=== PATIENT | female | born 1945 | race Caucasian/White ===

== ENCOUNTER 2018-09-29 14:30 | Outpatient (RCR) | payer MEDICARE, OTHER, SELFPAY ==
--- NOTE | 2018-08-16 17:06 | PT.OIE ---
Current Diagnoses Retention of urine, unspecified (08/12/18) Provider Visit Care Team Role Provider Type Gregoria Reid Primary Care Provider Non-Staff Specialty: Medical Address: [place], [address] Email: Popeye Pires Attending Provider Non-Staff Specialty: Urology Address: [address] [place] [address] [place], [address] Email: Physical Therapy Initial Evaluation PT-OP-A Visit Information Start: 08/12/18 12:20 Freq: Status: Active Protocol: Document 08/12/18 12:15 [facility] (Rec: 08/13/18 17:56 [facility] [id number]) Out-Patient Physical Therapy Visit Information Visit Information Visit Type Initial Evaluation Visit Note 72 year old female referered for urinary retention Visit Start Time 12:15 Visit Stop Time 13:00 Total Visit Minutes 45 Visit Number 1 Evaluation Information Evaluation Date 08/12/18 PT-OP-B Current Condition Start: 08/12/18 12:20 Freq: Status: Active Protocol: Document 08/12/18 12:15 [facility] (Rec: 08/12/18 12:40 [facility]ES [facility] [id number]) Current Condition History of Current Condition Onset Date July 2018 Current Complaints incomplete bladder emptying, urgency, frequency History of Current Condition Lilly reports her symptoms include a inability to void sitting up but if she bends over she is able to empty her bladder. Bladder leakage is also a issue and she leaks a few times per week and sometimes at night. She wears mini pads daily and changes them just one time per day. She does have a history of UTI 's but hasn't had one in the past few years. She tends to void frequently througout the day and is not fully emptying her bladder. She usually wakes up 1 time per night to void. She underwent a small intestine surgery laproscopy in March 2018. She takes one dose Mirilax per day and this regulates her bowels. [place] walks in the mall for exercise almost every day. Treatment Goals Patient/Caregiver Goals To be able to fully empty her bladder and decrease urinary urgency, frequency, and leakage Current Functional Impairments (Reported) Functional Limitations- ADL's frequent use of the restroom during the day due to urgency and waking at night to void makes her tired during the day for ADL's PT-OP-F Manual Assessment Start: 08/12/18 12:20 Freq: Status: Active Protocol: Document 08/12/18 12:15 [facility] (Rec: 08/16/18 16:56 [facility] [email or web address]) Manual Assessments Soft Tissue Assessment Soft Tissue Mobility Assessment tightness in bilateral hip musculature in piriformis, hamstrings, posterior gluteals PT-OP-I Pelvic Floor Start: 08/12/18 12:20 Freq: Status: Active Protocol: Document 08/12/18 12:15 [facility] (Rec: 08/16/18 16:56 [facility] [email or web address]) Pelvic Floor Assessment Urine Pelvic Floor Surgery No Urinary Symptoms Urge Sensation Incomplete Emptying Leakage Size Medium Leakage Cause Urge Leaks Per Day 2 Voiding Frequency approximately every hour Nocturia wakes one time at night to void Pads Used In 24 Hours 2 Urine Pad Type Maxi Pad Pelvic Clock Pelvic Clock 12-3 Atrophy Pelvic Clock 3-6 Atrophy Guarding Pelvic Clock 6-9 Atrophy Guarding Pelvic Clock 9-12 Atrophy Contraction Ability Voluntary Contraction Weak Voluntary Relaxation Weak Manual Muscle Testing Left 3 Manual Muscle Testing Right 3 Manual Muscle Testing Anterior 3 Manual Muscle Testing Posterior 3 Comments Pelvic Floor Comments difficulty fully relaxing the pelvic floor following a contraction PT-OP-Q Treatments Start: 08/12/18 12:20 Freq: Status: Active Protocol: Document 08/12/18 12:15 [facility] (Rec: 08/16/18 16:56 [facility] [email or web address]) Therapeutic Exercises Supine Exercises 2 Supine Exercise Name piriformis stretch Side bilateral Reps/Minutes hold 30 seconds to 1 minute 1 Supine Exercise Name happy baby stretch Side bilateral Reps/Minutes hold 30 seconds to 1 min Other Exercises 1 Other Exercise Name seated scapula squeezes for posture Side bilateral Reps/Minutes 10 reps a few times per day for posture PT-OP-T Assessment and Plan Start: 08/12/18 12:20 Freq: Status: Active Protocol: Document 08/12/18 12:15 [facility] (Rec: 08/16/18 16:56 [facility] [email or web address]) Physical Therapy Assessment Rehab Potential Rehabilitation Potential Good Evaluation Complexity Number of Personal Factors/Comorbidities 0 Number of Body Systems Impaired 1-2 Clinical Presentation at Evaluation Stable Impairments Impairments Activity Tolerance Posture Strength Tone Other Impairments urinary retention, urinary incontinence and frequency to void Goals Four Impairment Difficulty fully relaxing the pelvic floor following a contraction Short Term Goal (STG) Lilly is educated on fully relaxing the pelvic floor using EMG biofeedback down training for improved voiding and decreased urgancy Three Impairment Poor postural habits creating tightness in the abdominal wall and bladder Nursing Home Goal (LTG) Lilly is educated on postural habits to decrease forward fold in sitting and decrease tightness of the abdominal fascia over the bladder. Two Impairment endurance of the pelvic floor to support the bladder Pot Press Operator Goal (LTG) Improve strength of the pelvic floor from 2-3 second hold time to 10 second hold time in supine One Impairment Incomplete bladder emptying Short Term Goal (STG) Lilly is educated on relaxed awareness of the pelvic floor to help improve bladder emptying STG Duration 4 weeks Pot Press Operator Goal (LTG) With pelvic floor relaxation exercises Lilly is able to fully empty her bladder and her voiding frequency is decreased to every 2-3 hours Assessment Summary Assessment Lilly is a 73 year old female referred to PT for pelvic relaxation and EMG biofeedback for her symptoms of urinary retention. Lilly reports her symptoms of urinary retention began in June. She reports having to fold forward resting her upper body on her thighs to fully void. She does reports that she also under went surgery for small bowel obstruction earlier in the year. She notes she is often in a hurry when she voids due to urinary frequency and urgency that she experiences. She is experiencing bladder leakage approximately 2 times per week and is wearing pads for this. She will also report that she will wake up wet at night. She denies any feeling of pelvic pressure of heavyness. With examination today Lilly sits in a slumped forward posture bending forward from her waist in sitting. With internal examination she is able to facilitate all of her pelvic floor musculature at 3/ 5 MMT but she is weak and she has difficulty relaxing her pelvic floor following a contraction. She is limited in her pelvic floor endurance to only a few second hold time . She is also restricted in the fascia of the abdominal wall and over the suprapubic region which may be affecting her bladder's ability to fully empty and fill. Today we began with education on fully relaxing the pelvic floor with voiding and stretches to help with relaxation of the pelvic floor when voiding. I also started Lilly on some postural exercises as her poor posture may be contributing to her bladder dysfunction. EMG Biofeedback will begin next visit for pelvic relaxation and endurance training. Lilly's was present for her treatment. She is a good candidate for PT Physical Therapy Plan Frequency and Duration Duration of Treatment 8 Plan of Care Start Date 08/12/18 Plan of Care End Date 10/07/18 Therapeutic Interventions Therapeutic Interventions Home Exercise Program Manual Therapy Neuromuscular Re-education Patient/Caregiver Education Self-Care/Home Management Soft Tissue Mobilization Therapeutic Exercises Modalities Biofeedback Next Visit Focus/Plan Next Note Type Treatment Note Next Visit Plan review exercises that were given at the initial evaluation and begin EMG biofeedback
--- NOTE | 2018-08-20 13:50 | PT.OTN ---
Current Diagnoses Retention of urine, unspecified (08/18/18) Physical Therapy Treatment Note PT-OP-A Visit Information Start: 08/12/18 12:20 Freq: Status: Active Protocol: Document 08/18/18 14:30 [facility] (Rec: 08/20/18 12:58 [facility] [email or web address]) Out-Patient Physical Therapy Visit Information Visit Information Visit Type Treatment Note Visit Start Time 14:30 Visit Stop Time 15:15 Total Visit Minutes 45 Visit Number 2 Evaluation Information Evaluation Date 08/12/18 PT-OP-B Current Condition Start: 08/12/18 12:20 Freq: Status: Active Protocol: Document 08/12/18 12:15 [facility] (Rec: 08/12/18 12:40 [facility] [id number]) Current Condition History of Current Condition Onset Date July 2018 Current Complaints incomplete bladder emptying, urgency, frequency History of Current Condition Lilly reports her symptoms include a inablility to void sitting up but if she bends over she is able to empty her bladder. Bladder leakage is also a issue and she leaks a few times per week and sometimes at night. She wears mini pads daily and changes them just one time per day. She does have a history of UTI 's but hasn't had one in the past few years. She tends to void frequently througout the day and is not fully emptying her bladder. She usually wakes up 1 time per night to void. She underwent a small intestine surgery laproscopy in March 2018. She takes one dose Mirilax per day and this regulates her bowels. She walks in the mall for exercise almost every day. Treatment Goals Patient/Caregiver Goals To be able to fully empty her bladder and decrease urinary urgency, frequency, and leakage Current Functional Impairments (Reported) Functional Limitations- ADL's frequent use of the restroom during the day due to urgency and waking at night to void makes her tired during the day for ADL's PT-OP-C Subjective Start: 08/12/18 12:20 Freq: Status: Active Protocol: Document 08/18/18 14:30 [facility] (Rec: 08/20/18 12:58 [facility] [email or web address]) OP-PT Subjective Patient Comments Patient Comments Lilly reports she does not a bed to lay down on for exercises at this time and it is difficult for her to get off the floor. She is wondering about sitting exercises. She reports she sleeps on the couch on her side PT-OP-F Manual Assessment Start: 08/12/18 12:20 Freq: Status: Active Protocol: Document 08/12/18 12:15 [facility] (Rec: 08/16/18 16:56 [facility] [email or web address]) Manual Assessments Soft Tissue Assessment Soft Tissue Mobility Assessment tightness in bilateral hip musculature in piriformis, hamstrings, posterior gluteals PT-OP-I Pelvic Floor Start: 08/12/18 12:20 Freq: Status: Active Protocol: Document 08/12/18 12:15 [facility] (Rec: 08/16/18 16:56 [facility] [email or web address]) Pelvic Floor Assessment Urine Pelvic Floor Surgery No Urinary Symptoms Urge Sensation Incomplete Emptying Leakage Size Medium Leakage Cause Urge Leaks Per Day 2 Voiding Frequency approximately every hour Nocturia wakes one time at night to void Pads Used In 24 Hours 2 Urine Pad Type Maxi Pad Pelvic Clock Pelvic Clock 12-3 Atrophy Pelvic Clock 3-6 Atrophy Guarding Pelvic Clock 6-9 Atrophy Guarding Pelvic Clock 9-12 Atrophy Contraction Ability Voluntary Contraction Weak Voluntary Relaxation Weak Manual Muscle Testing Left 3 Manual Muscle Testing Right 3 Manual Muscle Testing Anterior 3 Manual Muscle Testing Posterior 3 Comments Pelvic Floor Comments difficulty fully relaxing the pelvic floor following a contraction PT-OP-Q Treatments Start: 08/12/18 12:20 Freq: Status: Active Protocol: Document 08/18/18 14:30 [facility] (Rec: 08/20/18 12:58 [facility] [email or web address]) Therapeutic Exercises Supine Exercises 2 Supine Exercise Name piriformis stretch Side bilateral Reps/Minutes hold 30 seconds to 1 minute Comments modified this for sitting at home 1 Supine Exercise Name happy baby stretch Side bilateral Reps/Minutes hold 30 seconds to 1 min Other Exercises 3 Other Exercise Name modified down dog stretch Comments used a chair for support, cues to open up the sitz bones 2 Other Exercise Name standing wall slides and wall posture Reps/Minutes 10 reps 1 Other Exercise Name seated scapula squeezes for posture Side bilateral Reps/Minutes 10 reps a few times per day for posture Neuro Re-Education Treatment Other Activities 1 Details EMG biofeedback assisted pelvic floor training and facilitation Reps/Duration 10 minutes of neuro re-ed Comments began long holds of 10 reps with empahsis on full relaxation of the pelvic floor in between contractions. Average 15.6 uv max of 42.5 uv and resting tone of 6.3 Time was spent on relaxed awareness of the pelvic floor PT-OP-T Assessment and Plan Start: 08/12/18 12:20 Freq: Status: Active Protocol: Document 08/18/18 14:30 [facility] (Rec: 08/20/18 13:50 [facility] [email or web address]) Physical Therapy Assessment Assessment Summary Assessment Lilly needed some change of position for her stretches as it is difficult for her to lay flat at home as she sleeps on the couch and does not currently have a bed to lay on It is difficult for her to lay on the floor. I did work on her pelvic floor exercises in supine but she will try these on the couch at home. She reports the toileting strategy of raising her arms over head to stretch the urethra has really helped her to void. Physical Therapy Plan Frequency and Duration Frequency of Treatment 1x/Week Duration of Treatment 8 Plan of Care Start Date 08/12/18 Plan of Care End Date 10/07/18 Therapeutic Interventions Therapeutic Interventions Home Exercise Program Manual Therapy Neuromuscular Re-education Patient/Caregiver Education Self-Care/Home Management Soft Tissue Mobilization Therapeutic Exercises Modalities Biofeedback Next Visit Focus/Plan Next Note Type Treatment Note Next Visit Plan review postural stretches next visit and continue to progress pelvic floor relaxed awareness and strengthening
--- NOTE | 2018-08-25 17:11 | PT.OTN ---
Current Diagnoses Retention of urine, unspecified (08/25/18) Physical Therapy Treatment Note PT-OP-A Visit Information Start: 08/12/18 12:20 Freq: Status: Active Protocol: Document 08/25/18 16:57 [facility] (Rec: 08/25/18 17:10 [facility] [email or web address]) Out-Patient Physical Therapy Visit Information Visit Information Visit Type Treatment Note Visit Start Time 14:30 Visit Stop Time 15:15 Total Visit Minutes 45 Visit Number 3 Evaluation Information Evaluation Date 08/12/18 PT-OP-B Current Condition Start: 08/12/18 12:20 Freq: Status: Active Protocol: Document 08/12/18 12:15 [facility] (Rec: 08/12/18 12:40 [facility] [id number]) Current Condition History of Current Condition Onset Date July 2018 Current Complaints incomplete bladder emptying, urgency, frequency History of Current Condition Lilly reports her symptoms include a inablility to void sitting up but if she bends over she is able to empty her bladder. Bladder leakage is also a issue and she leaks a few times per week and sometimes at night. She wears mini pads daily and changes them just one time per day. She does have a history of UTI 's but hasn't had one in the past few years. She tends to void frequently througout the day and is not fully emptying her bladder. She usually wakes up 1 time per night to void. She underwent a small intestine surgery laproscopy in March 2018. She takes one dose Mirilax per day and this regulates her bowels. She walks in the mall for exercise almost every day. Treatment Goals Patient/Caregiver Goals To be able to fully empty her bladder and decrease urinary urgency, frequency, and leakage Current Functional Impairments (Reported) Functional Limitations- ADL's frequent use of the restroom during the day due to urgency and waking at night to void makes her tired during the day for ADL's PT-OP-C Subjective Start: 08/12/18 12:20 Freq: Status: Active Protocol: Document 08/25/18 16:57 [facility] (Rec: 08/25/18 17:10 [facility] [email or web address]) OP-PT Subjective Patient Comments Patient Comments Lilly reports she had a very busy week and wasn't able to get the couch set up yet for her exercises. But she is doing better with her voiding and is not having to bend over to void, reaching her arms up is helping PT-OP-F Manual Assessment Start: 08/12/18 12:20 Freq: Status: Active Protocol: Document 08/12/18 12:15 [facility] (Rec: 08/16/18 16:56 [facility] [email or web address]) Manual Assessments Soft Tissue Assessment Soft Tissue Mobility Assessment tightness in bilateral hip musculature in piriformis, hamstrings, posterior gluteals PT-OP-I Pelvic Floor Start: 08/12/18 12:20 Freq: Status: Active Protocol: Document 08/12/18 12:15 [facility] (Rec: 08/16/18 16:56 [facility] [email or web address]) Pelvic Floor Assessment Urine Pelvic Floor Surgery No Urinary Symptoms Urge Sensation Incomplete Emptying Leakage Size Medium Leakage Cause Urge Leaks Per Day 2 Voiding Frequency approximately every hour Nocturia wakes one time at night to void Pads Used In 24 Hours 2 Urine Pad Type Maxi Pad Pelvic Clock Pelvic Clock 12-3 Atrophy Pelvic Clock 3-6 Atrophy Guarding Pelvic Clock 6-9 Atrophy Guarding Pelvic Clock 9-12 Atrophy Contraction Ability Voluntary Contraction Weak Voluntary Relaxation Weak Manual Muscle Testing Left 3 Manual Muscle Testing Right 3 Manual Muscle Testing Anterior 3 Manual Muscle Testing Posterior 3 Comments Pelvic Floor Comments difficulty fully relaxing the pelvic floor following a contraction PT-OP-Q Treatments Start: 08/12/18 12:20 Freq: Status: Active Protocol: Document 08/25/18 16:57 [facility] (Rec: 08/25/18 17:10 [facility] [email or web address]) Therapeutic Exercises Supine Exercises 4 Supine Exercise Name ball squeeze with pelvic floor contraction 3 Supine Exercise Name single knee to chest stretch Reps/Minutes hold 30 seconds to 1 minute 2 Supine Exercise Name piriformis stretch Side bilateral Reps/Minutes hold 30 seconds to 1 minute Comments modified this for sitting at home 1 Supine Exercise Name happy baby stretch Side bilateral Reps/Minutes hold 30 seconds to 1 min Standing Exercises 1 Standing Exercise Name standing doorway chest stretch Reps/Minutes hold 30 sec Other Exercises 3 Other Exercise Name modified down dog stretch Comments used a chair for support, cues to open up the sitz bones 2 Other Exercise Name standing wall slides and wall posture Reps/Minutes 10 reps 1 Other Exercise Name seated scapula squeezes for posture Side bilateral Reps/Minutes 10 reps a few times per day for posture Neuro Re-Education Treatment Other Activities 1 Details EMG biofeedback assisted pelvic floor training and facilitation Reps/Duration 10 minutes of neuro re-ed Comments began long holds of 10 reps with empahsis on full relaxation of the pelvic floor in between contractions. Average 15.6 uv max of 42.5 uv and resting tone of 6.3 Time was spent on relaxed awareness of the pelvic floor PT-OP-T Assessment and Plan Start: 08/12/18 12:20 Freq: Status: Active Protocol: Document 08/25/18 16:57 [facility] (Rec: 08/25/18 17:10 [facility] [email or web address]) Physical Therapy Assessment Assessment Summary Assessment Decreased resting tone today to 2.0 uv, much improved overall. Continue to work on both relaxed awareness of the pelvic floor as well as strength for bladder support, posture needs continued work as well to decrease downward strain on the bladder Physical Therapy Plan Frequency and Duration Frequency of Treatment 1x/Week Duration of Treatment 8 Plan of Care Start Date 08/12/18 Plan of Care End Date 10/07/18 Therapeutic Interventions Therapeutic Interventions Home Exercise Program Manual Therapy Neuromuscular Re-education Patient/Caregiver Education Self-Care/Home Management Soft Tissue Mobilization Therapeutic Exercises Modalities Biofeedback Next Visit Focus/Plan Next Note Type Treatment Note Next Visit Plan continue to progress both pelvic floor strength, relaxed awareness at rest, and postural progression
--- NOTE | 2018-09-02 10:32 | PT.OTN ---
Current Diagnoses Retention of urine, unspecified (09/01/18) Physical Therapy Treatment Note PT-OP-A Visit Information Start: 08/12/18 12:20 Freq: Status: Active Protocol: Document 09/01/18 10:25 [facility] (Rec: 09/02/18 10:32 [facility] [email or web address]) Out-Patient Physical Therapy Visit Information Visit Information Visit Type Treatment Note Visit Start Time 14:30 Visit Stop Time 15:15 Total Visit Minutes 45 Visit Number 4 Evaluation Information Evaluation Date 08/12/18 PT-OP-B Current Condition Start: 08/12/18 12:20 Freq: Status: Active Protocol: Document 08/12/18 12:15 [facility] (Rec: 08/12/18 12:40 [facility] [id number]) Current Condition History of Current Condition Onset Date July 2018 Current Complaints incomplete bladder emptying, urgency, frequency History of Current Condition Lilly reports her symptoms include a inablility to void sitting up but if she bends over she is able to empty her bladder. Bladder leakage is also a issue and she leaks a few times per week and sometimes at night. She wears mini pads daily and changes them just one time per day. She does have a history of UTI 's but hasn't had one in the past few years. She tends to void frequently througout the day and is not fully emptying her bladder. She usually wakes up 1 time per night to void. She underwent a small intestine surgery laproscopy in March 2018. She takes one dose Mirilax per day and this regulates her bowels. [place] in the mall for exercise almost every day. Treatment Goals Patient/Caregiver Goals To be able to fully empty her bladder and decrease urinary urgency, frequency, and leakage Current Functional Impairments (Reported) Functional Limitations- ADL's frequent use of the restroom during the day due to urgency and waking at night to void makes her tired during the day for ADL's PT-OP-C Subjective Start: 08/12/18 12:20 Freq: Status: Active Protocol: Document 09/01/18 10:25 [facility] (Rec: 09/02/18 10:32 [facility] [email or web address]) OP-PT Subjective Patient Comments Patient Comments Has been able to do her exercises laying down on the couch. Doing better overall but still feels at times like she is not fully emptying PT-OP-F Manual Assessment Start: 08/12/18 12:20 Freq: Status: Active Protocol: Document 08/12/18 12:15 [facility] (Rec: 08/16/18 16:56 [facility] [email or web address]) Manual Assessments Soft Tissue Assessment Soft Tissue Mobility Assessment tightness in bilateral hip musculature in piriformis, hamstrings, posterior gluteals PT-OP-I Pelvic Floor Start: 08/12/18 12:20 Freq: Status: Active Protocol: Document 08/12/18 12:15 [facility] (Rec: 08/16/18 16:56 [facility] [email or web address]) Pelvic Floor Assessment Urine Pelvic Floor Surgery No Urinary Symptoms Urge Sensation Incomplete Emptying Leakage Size Medium Leakage Cause Urge Leaks Per Day 2 Voiding Frequency approximately every hour Nocturia wakes one time at night to void Pads Used In 24 Hours 2 Urine Pad Type Maxi Pad Pelvic Clock Pelvic Clock 12-3 Atrophy Pelvic Clock 3-6 Atrophy Guarding Pelvic Clock 6-9 Atrophy Guarding Pelvic Clock 9-12 Atrophy Contraction Ability Voluntary Contraction Weak Voluntary Relaxation Weak Manual Muscle Testing Left 3 Manual Muscle Testing Right 3 Manual Muscle Testing Anterior 3 Manual Muscle Testing Posterior 3 Comments Pelvic Floor Comments difficulty fully relaxing the pelvic floor following a contraction PT-OP-Q Treatments Start: 08/12/18 12:20 Freq: Status: Active Protocol: Document 09/01/18 10:25 [facility] (Rec: 09/02/18 10:32 [facility] [email or web address]) Therapeutic Exercises Supine Exercises 5 Supine Exercise Name roll outs with theraband Reps/Minutes 3 x 10 reps 4 Supine Exercise Name ball squeeze with pelvic floor contraction 3 Supine Exercise Name single knee to chest stretch Reps/Minutes hold 30 seconds to 1 minute 2 Supine Exercise Name piriformis stretch Side bilateral Reps/Minutes hold 30 seconds to 1 minute Comments modified this for sitting at home 1 Supine Exercise Name happy baby stretch Side bilateral Reps/Minutes hold 30 seconds to 1 min Standing Exercises 1 Standing Exercise Name standing doorway chest stretch Reps/Minutes hold 30 sec Other Exercises 3 Other Exercise Name modified down dog stretch Comments used a chair for support, cues to open up the sitz bones 2 Other Exercise Name standing wall slides and wall posture Reps/Minutes 10 reps 1 Other Exercise Name seated scapula squeezes for posture Side bilateral Reps/Minutes 10 reps a few times per day for posture Neuro Re-Education Treatment Other Activities 2 Details tactlie cues for posture to decrease pressure down on the bladder Comments becomming more aware of forward lean posture and how it is contributing to her bladder dysfunction. 1 Details EMG biofeedback assisted pelvic floor training and facilitation Reps/Duration 10 minutes of neuro re-ed Comments began long holds of 10 reps with empahsis on full relaxation of the pelvic floor in between contractions. Average 15.6 uv max of 42.5 uv and resting tone of 6.3 Time was spent on relaxed awareness of the pelvic floor PT-OP-T Assessment and Plan Start: 08/12/18 12:20 Freq: Status: Active Protocol: Document 09/01/18 10:25 [facility] (Rec: 09/02/18 10:32 [facility] [email or web address]) Physical Therapy Assessment Assessment Summary Assessment Continues to improve with pelvic floor strength and postural cueing. Able to stand against the wall today with improved posture for wall slides. Continue to emphasize good posture for toileting. Physical Therapy Plan Frequency and Duration Frequency of Treatment 1x/Week Duration of Treatment 8 Plan of Care Start Date 08/12/18 Plan of Care End Date 10/07/18 Therapeutic Interventions Therapeutic Interventions Home Exercise Program Manual Therapy Neuromuscular Re-education Patient/Caregiver Education Self-Care/Home Management Soft Tissue Mobilization Therapeutic Exercises Modalities Biofeedback Next Visit Focus/Plan Next Note Type Treatment Note Next Visit Plan continue to progress both pelvic floor strength, relaxed awareness at rest, and postural progression
--- NOTE | 2018-09-24 18:49 | PT.OTN ---
Current Diagnoses Retention of urine, unspecified (09/22/18) Physical Therapy Treatment Note PT-OP-A Visit Information Start: 08/12/18 12:20 Freq: Status: Active Protocol: Document 09/22/18 14:30 [facility] (Rec: 09/24/18 18:49 [facility] [email or web address]) Out-Patient Physical Therapy Visit Information Visit Information Visit Type Treatment Note Visit Start Time 14:30 Visit Stop Time 15:15 Total Visit Minutes 45 Visit Number 5 Evaluation Information Evaluation Date 08/12/18 PT-OP-B Current Condition Start: 08/12/18 12:20 Freq: Status: Active Protocol: Document 08/12/18 12:15 [facility] (Rec: 08/12/18 12:40 [facility] [id number]) Current Condition History of Current Condition Onset Date July 2018 Current Complaints incomplete bladder emptying, urgency, frequency History of Current Condition Lilly reports her symptoms include a inablility to void sitting up but if she bends over she is able to empty her bladder. Bladder leakage is also a issue and she leaks a few times per week and sometimes at night. She wears mini pads daily and changes them just one time per day. She does have a history of UTI 's but hasn't had one in the past few years. She tends to void frequently througout the day and is not fully emptying her bladder. She usually wakes up 1 time per night to void. She underwent a small intestine surgery laproscopy in March 2018. She takes one dose Mirilax per day and this regulates her bowels. [place] in the mall for exercise almost every day. Treatment Goals Patient/Caregiver Goals To be able to fully empty her bladder and decrease urinary urgency, frequency, and leakage Current Functional Impairments (Reported) Functional Limitations- ADL's frequent use of the restroom during the day due to urgency and waking at night to void makes her tired during the day for ADL's PT-OP-C Subjective Start: 08/12/18 12:20 Freq: Status: Active Protocol: Document 09/22/18 14:30 [facility] (Rec: 09/24/18 18:49 [facility] [email or web address]) OP-PT Subjective Patient Comments Patient Comments Lilly reports her symptoms are better and it is easier to void PT-OP-F Manual Assessment Start: 08/12/18 12:20 Freq: Status: Active Protocol: Document 08/12/18 12:15 [facility] (Rec: 08/16/18 16:56 [facility] [email or web address]) Manual Assessments Soft Tissue Assessment Soft Tissue Mobility Assessment tightness in bilateral hip musculature in piriformis, hamstrings, posterior gluteals PT-OP-I Pelvic Floor Start: 08/12/18 12:20 Freq: Status: Active Protocol: Document 08/12/18 12:15 [facility] (Rec: 08/16/18 16:56 [facility] [email or web address]) Pelvic Floor Assessment Urine Pelvic Floor Surgery No Urinary Symptoms Urge Sensation Incomplete Emptying Leakage Size Medium Leakage Cause Urge Leaks Per Day 2 Voiding Frequency approximately every hour Nocturia wakes one time at night to void Pads Used In 24 Hours 2 Urine Pad Type Maxi Pad Pelvic Clock Pelvic Clock 12-3 Atrophy Pelvic Clock 3-6 Atrophy Guarding Pelvic Clock 6-9 Atrophy Guarding Pelvic Clock 9-12 Atrophy Contraction Ability Voluntary Contraction Weak Voluntary Relaxation Weak Manual Muscle Testing Left 3 Manual Muscle Testing Right 3 Manual Muscle Testing Anterior 3 Manual Muscle Testing Posterior 3 Comments Pelvic Floor Comments difficulty fully relaxing the pelvic floor following a contraction PT-OP-Q Treatments Start: 08/12/18 12:20 Freq: Status: Active Protocol: Document 09/22/18 14:30 [facility] (Rec: 09/24/18 18:49 [facility] [email or web address]) Therapeutic Exercises Supine Exercises 5 Supine Exercise Name roll outs with theraband Reps/Minutes 3 x 10 reps 4 Supine Exercise Name ball squeeze with pelvic floor contraction 3 Supine Exercise Name single knee to chest stretch Reps/Minutes hold 30 seconds to 1 minute 2 Supine Exercise Name piriformis stretch Side bilateral Reps/Minutes hold 30 seconds to 1 minute Comments modified this for sitting at home 1 Supine Exercise Name happy baby stretch Side bilateral Reps/Minutes hold 30 seconds to 1 min Standing Exercises 1 Standing Exercise Name standing doorway chest stretch Other Exercises 4 Other Exercise Name standing rows and bilateral shoulder extension Reps/Minutes 3 x 10 reps 3 Other Exercise Name modified down dog stretch Comments used a chair for support, cues to open up the sitz bones 2 Other Exercise Name standing wall slides and wall posture Reps/Minutes 10 reps 1 Other Exercise Name seated scapula squeezes for posture Side bilateral Reps/Minutes 10 reps a few times per day for posture PT-OP-T Assessment and Plan Start: 08/12/18 12:20 Freq: Status: Active Protocol: Document 09/22/18 14:30 [facility] (Rec: 09/24/18 18:49 [facility] [email or web address]) Physical Therapy Assessment Assessment Summary Assessment Needs verbal cuing still with posture but starting to be able to self correct her forward posture that puts pressure down on her bladder. Physical Therapy Plan Frequency and Duration Frequency of Treatment 1x/Week Duration of Treatment 8 Plan of Care Start Date 08/12/18 Plan of Care End Date 10/07/18 Therapeutic Interventions Therapeutic Interventions Home Exercise Program Manual Therapy Neuromuscular Re-education Patient/Caregiver Education Self-Care/Home Management Soft Tissue Mobilization Therapeutic Exercises Modalities Biofeedback Next Visit Focus/Plan Next Note Type Treatment Note Next Visit Plan review standing posture exercises, theraband exercises and core stabilization
--- NOTE | 2018-09-29 18:01 | PT.OTN ---
Current Diagnoses Retention of urine, unspecified (09/29/18) Physical Therapy Treatment Note PT-OP-A Visit Information Start: 08/12/18 12:20 Freq: Status: Active Protocol: Document 09/29/18 17:47 [facility] (Rec: 09/29/18 18:01 [facility] [email or web address]) Out-Patient Physical Therapy Visit Information Visit Information Visit Type Treatment Note Visit Start Time 14:30 Visit Stop Time 15:15 Total Visit Minutes 45 Visit Number 6 PT-OP-B Current Condition Start: 08/12/18 12:20 Freq: Status: Active Protocol: Document 08/12/18 12:15 [facility] (Rec: 08/12/18 12:40 [facility] [id number]) Current Condition History of Current Condition Onset Date July 2018 Current Complaints incomplete bladder emptying, urgency, frequency History of Current Condition Lilly reports her symptoms include a inablility to void sitting up but if she bends over she is able to empty her bladder. Bladder leakage is also a issue and she leaks a few times per week and sometimes at night. She wears mini pads daily and changes them just one time per day. She does have a history of UTI 's but hasn't had one in the past few years. She tends to void frequently througout the day and is not fully emptying her bladder. She usually wakes up 1 time per night to void. She underwent a small intestine surgery laproscopy in March 2018. She takes one dose Mirilax per day and this regulates her bowels. [place] walks in the mall for exercise almost every day. Treatment Goals Patient/Caregiver Goals To be able to fully empty her bladder and decrease urinary urgency, frequency, and leakage Current Functional Impairments (Reported) Functional Limitations- ADL's frequent use of the restroom during the day due to urgency and waking at night to void makes her tired during the day for ADL's PT-OP-C Subjective Start: 08/12/18 12:20 Freq: Status: Active Protocol: Document 09/29/18 17:47 [facility] (Rec: 09/29/18 18:01 [facility] [email or web address]) OP-PT Subjective Patient Comments Patient Comments Lilly reports she is doing better overall and emptying her bladder better now PT-OP-F Manual Assessment Start: 08/12/18 12:20 Freq: Status: Active Protocol: Document 08/12/18 12:15 [facility] (Rec: 08/16/18 16:56 [facility] [email or web address]) Manual Assessments Soft Tissue Assessment Soft Tissue Mobility Assessment tightness in bilateral hip musculature in piriformis, hamstrings, posterior gluteals PT-OP-I Pelvic Floor Start: 08/12/18 12:20 Freq: Status: Active Protocol: Document 08/12/18 12:15 [facility] (Rec: 08/16/18 16:56 [facility] [email or web address]) Pelvic Floor Assessment Urine Pelvic Floor Surgery No Urinary Symptoms Urge Sensation Incomplete Emptying Leakage Size Medium Leakage Cause Urge Leaks Per Day 2 Voiding Frequency approximately every hour Nocturia wakes one time at night to void Pads Used In 24 Hours 2 Urine Pad Type Maxi Pad Pelvic Clock Pelvic Clock 12-3 Atrophy Pelvic Clock 3-6 Atrophy Guarding Pelvic Clock 6-9 Atrophy Guarding Pelvic Clock 9-12 Atrophy Contraction Ability Voluntary Contraction Weak Voluntary Relaxation Weak Manual Muscle Testing Left 3 Manual Muscle Testing Right 3 Manual Muscle Testing Anterior 3 Manual Muscle Testing Posterior 3 Comments Pelvic Floor Comments difficulty fully relaxing the pelvic floor following a contraction PT-OP-Q Treatments Start: 08/12/18 12:20 Freq: Status: Active Protocol: Document 09/29/18 17:47 [facility] (Rec: 09/29/18 18:01 [facility] [email or web address]) Therapeutic Exercises Supine Exercises 5 Supine Exercise Name roll outs with theraband Reps/Minutes 3 x 10 reps 4 Supine Exercise Name ball squeeze with pelvic floor contraction 3 Supine Exercise Name single knee to chest stretch Reps/Minutes hold 30 seconds to 1 minute 1 Supine Exercise Name happy baby stretch Side bilateral Reps/Minutes hold 30 seconds to 1 min Standing Exercises 2 Standing Exercise Name sit to stand with pelvic floor engagement 1 Standing Exercise Name standing doorway chest stretch Other Exercises 4 Other Exercise Name standing rows and bilateral shoulder extension Reps/Minutes 3 x 10 reps 2 Other Exercise Name standing wall slides and wall posture Reps/Minutes 10 reps 1 Other Exercise Name seated scapula squeezes for posture Side bilateral Reps/Minutes 10 reps a few times per day for posture PT-OP-T Assessment and Plan Start: 08/12/18 12:20 Freq: Status: Active Protocol: Document 09/29/18 17:47 [facility] (Rec: 09/29/18 18:01 [facility] [email or web address]) Physical Therapy Assessment Goals Four Impairment Difficulty fully relaxing the pelvic floor following a contraction Short Term Goal (STG) Lilly is educated on fully relaxing the pelvic floor using EMG biofeedback down training for improved voiding and decreased urgancy Assisted Goal (LTG) GOAL MET, relaxing to baseline now on EMG biofeedback Three Impairment Poor postural habits creating tightness in the abdominal wall and bladder Assisted Goal (LTG) Lilly is educated on postural habits to decrease forward fold in sitting and decrease tightness of the abdominal fascia over the bladder. LTG Duration GOAL MET Two Impairment endurance of the pelvic floor to support the bladder Willow Analyst Goal (LTG) Improve strength of the pelvic floor from 2-3 second hold time to 10 second hold time in supine LTG Duration GOAL MET 10 second hold time One Impairment Incomplete bladder emptying Short Term Goal (STG) Lilly is educated on relaxed awareness of the pelvic floor to help improve bladder emptying STG Duration 4 weeks Assisted Goal (LTG) With pelvic floor relaxation exercises Lilly is able to fully empty her bladder and her voiding frequency is decreased to every 2-3 hours LTG Duration GOALS MET Progress Towards Goals Progress Towards Goals Goals Met Assessment Summary Assessment Lilly is doing better with her symptoms overall. She reports she is not doing the exercises at home so I tried to have her think of ways she could incorporate them into her daily routine. She is demonstrating improved voiding now and has shown a good increase in pelvic floor strength. All PT goals have been met. She will be discharged at this time from PT Physical Therapy Plan Discharge Physical Therapy Discharge Reasons Goals Met
== END 2018-09-30 12:27 ==
LOC: PHYS 14:30
PROVIDERS: PCP Internal Medicine; Visit Provider Student in an Organized Health Care Education/Training Program
DX: R33.9 Retention of urine, unspecified (principal)
CPT/HCPCS: 97110; 97112; 97162